=== PATIENT | female | born 1985 | race Caucasian/White ===

== ENCOUNTER 2024-08-01 17:37 | Inpatient (IN) ==
[2024-08-01] MEDS ORDERED: LIDOCAINE 1% LOCAL 20 ML VIAL INFIL PRN (18:16)
[2024-08-01] MEDS: LACTATED RINGER'S 1,000 ML IV PRN (18:26)
--- NOTE | 2024-08-01 18:29 | History & Physical Report ---
Date of Service August 01, 2024 Assessment & Plan (1) premature rupture of membranes: (2) Chronic hypertension affecting : (3) resulting from in-vitro fertilization: Plan 38 yo at 36 1/7 wga dx w/ pprom Mild range bp c/w chtn on meds, will monitor Fetus cat 2 - initially had 2 variables but resolved w/ repositioning and IVF and now cat 1, will continue to monitor Labor - small progress from this AM, will expectant manage for now GBS unk - pcn ordered as PPROM - discussed betamethasone course given status and no prior course, discussed risk of hypoglycemia. Pt agreeable and peds aware desires epidural History of Present Illness Chief Complaint: LOF, ctx Primary Care Provider: Juice Lux MD 38 yo at 36 1/7 wga presents w/ LOF and worsening ctx. Was seen this AM and unchanged 1cm over 4hrs so dc. 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 hx: G1 2015 TAB G2 current regular cycles denies hx stis Allergies Allergy/AdvReac Type Severity Reaction Status Date / Time chlorhexidine Allergy Rash Verified 08/01/24 03:46 Home Medications Medication Instructions Recorded Confirmed Type nifedipine 30 mg tablet,extended 30 mg PO BID 02/04/24 08/01/24 History release prenat.vits,tania,imi-ccll-phpkr 1 tab PO DAILY 02/04/24 08/01/24 History aspirin 81 mg tablet,delayed 81 mg PO DAILY 07/19/24 08/01/24 History release famotidine 20 mg tablet (Pepcid) 20 mg PO DAILY 07/30/24 08/01/24 History Patient History Surgical History S/P dilation and curettage Family History Grandmother Breast cancer Father Kidney disease Hypertension Social History (Updated 08/01/24 @ 03:40 by Concetta Castillo RN) Smoking Status: Never smoker Do You Dip or Chew Tobacco: No; Hx Alcohol Use: No Hx Substance Use: No Preferred Language: Sinhala Communication Ability: Effective Visual Impairment: No Limitations Hearing Ability: Normal Beliefs That Will Affect Care: None marital status: marital status details: Fortunato (38) [phone] Current Living Situation: Spouse Current Living Situation Comment: lives with spouse, 2 step children, no pets. 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 @ [employer] Feels Safe at Home: Yes Diet: regular Physical Exam Genitourinary: OB Exam Abdomen: + vertex (confirmed by bsus) Manual OB Exam: + cervical dilation 2 cm, + cervical effacement 90%, + station -2 and + amniotic fluid (+pooling, nitrazine, ferning) OB Exam Monitor Tracing: + external FHT monitor used, + external uterine monitor used (4) and + category II (145/mod/+accel/2 variables initially but improved w/ repositioning/ivf) Results & Data Vital Signs (Past 12 Hours) Vital Signs Temp Pulse Resp BP 08/01/24 17:50 98.2 F 100 H 20 147/90 H Laboratory Results OB Labs: Blood Type A Positive 02/12/24 Antibody Screen NEGATIVE 02/12/24 Hgb 13.1 g/dl (12.0-16.0) 07/28/24 Hct 38.9 % (37.0-47.0) 07/28/24 MCV 99.5 fL (80.0-100.0) 07/28/24 Plt Count 340 K/uL (130-400) 07/28/24 Rubella IgG Antibody Immune (Immune) 02/12/24 Treponema pallidum Ab Negative (Negative) 06/04/24 Hep Bs Antigen Negative (Negative) 02/12/24 Hepatitis C Antibody Negative (Negative) 02/12/24 HIV 1&2 Ab/P24 Ag 4thGn Negative (Negative) 02/12/24 Glucose 1 Hr 50 gm 119 mg/dl (70-130) 06/04/24 Maternal Serum AFP 68.5 ng/mL 03/10/24 OB Optional Labs: Chlamydia trachomatis RNA Not Detected (NotDetected) 02/12/24 Neisseria gonorrhoeae RNA Not Detected (NotDetected) 02/12/24 Thyroid Stimulating Hormone (TSH) 1.950 uIU/mL (0.30-4.50) 06/22/23 Alpha Fetoprotein Triple Screen SEE NOTE 03/10/24 Labs Reviewed: msafp wnl, smp GBS unk Diagnostic Findings 07/28 EFW 29%, AC 66%, post plac Coding Level of Care Code None Diagnoses premature rupture of membranes O42.919 Chronic hypertension affecting O10.919 resulting from in-vitro fertilization O09.819
[2024-08-01] MEDS: BETAMETH SOD PHOS/ACETATE IA 6 MG/ML IM STA (18:39)
[2024-08-01 18:44] LABS: Hematocrit (blood only) 34.5 % (37.0-47.0); Hemoglobin 11.8 g/dl (12.0-16.0); Mean Corpuscular Hemoglobin 33.2 pg (25.0-34.0); Mean Corpuscular Hgb Conc 34.2 g/dL (32.0-36.0); Mean Corpuscular Volume 97.2 fL (80.0-100.0); Mean Platelet Volume 10.9 fL (9.4-12.4); Platelet Count 307 K/uL (130-400); RDW Coefficient of Variation 12.7 % (11.5-14.5); RDW Standard Deviation 45.3 fL (36.4-46.3); Red Blood Count 3.55 M/uL (4.20-5.40); White Blood Count 15.01 K/ul (4.8-10.8)
[2024-08-01] MEDS: PENICILLIN GK 6 MU in DEXTROSE 5% 250 ML IV STA (19:18)
[2024-08-01] MEDS ORDERED: ROPIVACAINE 0.5% PF 5 MG/ML 20 ML VIAL EPI PRN (20:06)
[2024-08-01] MEDS ORDERED: fentaNYL citrate PF 100 MCG/2 ML VIAL EPI PRN (20:06)
[2024-08-01] MEDS ORDERED: SODIUM CHLORIDE 0.9% PF INJ 10 ML VIAL EPI PRN (20:06)
[2024-08-01] MEDS ORDERED: ONDANSETRON INJ 2 MG/ML 2 ML VIAL IV PRN (20:08)
[2024-08-01] MEDS ORDERED: ePHEDrine sulfate 50 MG/ML AMP IV PRN (20:08)
[2024-08-01] MEDS ORDERED: diphenhydrAMINE 50 MG/ML VIAL IV PRN (20:08)
[2024-08-01] MEDS ORDERED: NALOXONE HCL 0.4 MG/1 ML VIAL/CARP IV PRN (20:08)
[2024-08-01] MEDS ORDERED: NALOXONE HCL 1 MG in SODIUM CHLORIDE 0.9% 1,000 ML IV PRN (20:08)
[2024-08-01] MEDS ORDERED: LIDOCAINE 2% MPF LOCAL 5 ML VIAL EPI PRN (20:09)
[2024-08-01] MEDS ORDERED: NALBUPHINE HCL INJ 10 MG/ML AMP IV PRN (20:10)
[2024-08-01] MEDS: BUPIVACAINE 0.25% PF 30 ML VIAL ONE (20:10)
[2024-08-01] MEDS: LIDOCAINE 2%/EPINEPHRINE 1:200,000 20 ML PF ONE (20:10)
[2024-08-01] MEDS: fentaNYL citrate PF 100 MCG/2 ML VIAL ONE (20:10)
[2024-08-01] MEDS: fentANYL 2 MCG/ML BUPIVacaine 0.125%-NSS 100ML BAG ONE (20:11)
[2024-08-01] MEDS: LIDOCAINE 2%/EPINEPHRINE 1:200,000 20 ML PF EPI STA (20:18)
[2024-08-01] MEDS: SODIUM CHLORIDE 0.9% PF INJ 10 ML VIAL ONE (20:18)
[2024-08-01] MEDS: fentaNYL citrate PF 100 MCG/2 ML VIAL EPI STA (20:18)
[2024-08-01] MEDS: SODIUM CHLORIDE 0.9% PF INJ 10 ML VIAL EPI STA (20:19)
[2024-08-01] MEDS: BUPIVACAINE 0.25% PF 30 ML VIAL EPI STA (20:19)
[2024-08-01] MEDS: ePHEDrine sulfate 50 MG/ML AMP ONE (20:25)
--- NOTE | 2024-08-01 20:51 | Labor Progress Brief Note ---
Date of Service August 01, 2024 Subjective comfortable w/ epidural Assessment & Plan (1) premature rupture of membranes: (2) Chronic hypertension affecting : (3) resulting from in-vitro fertilization: Plan 38 yo at 36 1/7 wga dx w/ pprom Mild range bp c/w chtn on meds, will monitor Fetus cat 2 - reassuring with good variability and accels but intermit variable. IUPC placed, would consider amnioinfusion if continue despite repositioning, seem to occur more on L side Labor - progress noted however ctx spaced out. Discussed pit and pt agreeable. Can try amnioinfusion of variables persist/worsen. Discussed possibility of intolerance to labor but fetus is reassuring otherwise thus far so will try these maneuvers first, pt verbalized understsanding GBS unk - pcn ordered as PPROM - s/p betamethasone x [address] Admission and Anticipated Discharge Date Admission Date: August 01, 2024 Physical Exam Genitourinary: Manual OB Exam: + cervical dilation 3 cm, + cervical effacement 90% and + station -2 OB Exam Monitor Tracing: + external FHT monitor used, + intra-uterine pressure catheter used (placed, q7) and + category II (145/mod/+accel/intermit variable) Results & Data Vital Signs (Past 12 Hours) Vital Signs Temp Pulse Resp BP Pulse Ox 08/01/24 20:47 100 08/01/24 20:47 116 H 08/01/24 20:44 118 H 08/01/24 20:44 119/62 08/01/24 20:42 99 08/01/24 20:42 101 H 08/01/24 20:39 116 H 08/01/24 20:39 118/64 08/01/24 20:37 99 08/01/24 20:37 106 H 08/01/24 20:34 105 H 08/01/24 20:34 119/62 08/01/24 20:32 100 08/01/24 20:32 117 H 08/01/24 20:30 125 H 08/01/24 20:30 114/55 L 08/01/24 20:27 98 08/01/24 20:27 116 H 08/01/24 20:24 125 H 08/01/24 20:24 92/53 L 08/01/24 20:22 99 08/01/24 20:22 128 H 08/01/24 20:18 127 H 08/01/24 20:18 104/67 08/01/24 20:17 129 H 08/01/24 20:17 105/64 08/01/24 20:17 100 08/01/24 20:17 127 H 08/01/24 20:17 101/58 L 08/01/24 20:16 134 H 08/01/24 20:16 97/54 L 08/01/24 20:16 133 H 08/01/24 20:16 111/57 L 08/01/24 20:14 120 H 08/01/24 20:14 127/71 08/01/24 20:14 121 H 08/01/24 20:14 132/70 08/01/24 20:12 136 H 08/01/24 20:12 116/62 08/01/24 20:12 100 08/01/24 20:12 132 H 08/01/24 20:11 133 H 08/01/24 20:11 120/66 08/01/24 20:10 134 H 08/01/24 20:10 128/73 08/01/24 20:10 120 H 08/01/24 20:10 135/77 08/01/24 20:09 114 H 08/01/24 20:09 148/87 H 08/01/24 20:08 129 H 08/01/24 20:08 145/88 H 08/01/24 20:07 100 08/01/24 20:07 120 H 08/01/24 20:06 113 H 08/01/24 20:06 147/92 H 08/01/24 20:05 110 H 08/01/24 20:05 141/90 H 08/01/24 20:02 100 08/01/24 20:02 121 H 08/01/24 19:57 100 08/01/24 19:57 112 H 08/01/24 19:05 98.2 F 18 08/01/24 19:05 18 08/01/24 19:05 98.2 F 18 08/01/24 19:04 94 H 08/01/24 19:04 134/68 08/01/24 17:50 98.2 F 100 H 20 147/90 H Coding Level of Care Code None Diagnoses premature rupture of membranes O42.919 Chronic hypertension affecting O10.919 resulting from in-vitro fertilization O09.819
[2024-08-01] MEDS: PENICILLIN GK 3 MU in DEXTROSE 5% 100 ML IV PRN (22:45)
[2024-08-01] MEDS: OXYTOCIN 30 UNITS/NSS 30 UNITS/500 ML BAG IV PRN (23:01)
[2024-08-02] MEDS: fentANYL 2 MCG/ML BUPIVacaine 0.125%-NSS 100ML BAG EPI PRN (04:25)
[2024-08-02] MEDS: BUPIVACAINE 0.25% PF 30 ML VIAL EPI PRN (04:27)
[2024-08-02] MEDS: OXYTOCIN 30 UNITS/NSS 30 UNITS/500 ML BAG IV PRN (06:54)
--- NOTE | 2024-08-02 07:01 | Delivery Summary ---
Vaginal Delivery Summary Date of Service August 02, 2024 Vaginal Delivery Summary [facility] PREOPERATIVE DIAGNOSIS: 1. Single intrauterine at 36 2/7 wga 2. PPROM 3. Chronic hypertension 4. IVF 5. AMA POSTOPERATIVE DIAGNOSIS: 1. Single intrauterine at 36 2/7 wga 2. PPROM 3. Chronic hypertension 4. IVF 5. AMA 6. Delivered PROCEDURE: 1. Normal spontaneous vaginal delivery. SURGEON: Una Weston MD ANESTHESIA: Epidural. QUANTITATIVE BLOOD LOSS: 171 mL FLUIDS: Continuous LR. URINE OUTPUT: None. COMPLICATIONS: None. CONDITION: Stable. INDICATIONS: 38 yo at 36 2/7 wga presented with PPROM last evening. She received a dose of betamethasone and started on penicillin for GBS unknown status. She received an epidural for pain control. She was started on pitocin due to contractions spacing out and progressed to complete and desired to push FINDINGS: A viable male , weight pending with Apgars of 8 and 9 at 1 and 5 minutes respectively. SPECIMEN: Cord blood OPERATIVE REPORT: The patient progressed to 10 cm, 100% effaced and +2 station, pushed over intact perineum with anesthesia to deliver a viable male , weight and Apgars as above. Head of delivered in TOMA position. No nuchal cord was present. Body and shoulders were delivered without difficulty through body cord. was delivered to maternal abdomen and nursing staff. Delayed cord clamping was performed for 60 seconds. Cord was clamped and cut. Cord blood was obtained. Placenta delivered spontaneously intact with 3-vessel cord. IV oxytocin and fundal massage were given for excellent hemostasis. Vagina, cervix, perineum, and placenta were inspected. A right vaginal laceration extending to the external right labia was repaired using 3-0 and 4-0 vicryl, there was good hemostasis. Sponge and needle counts correct x2. No sponges were left behind. Mother and stable in immediate period. [facility] Vaginal Delivery Charge Vaginal Delivery Codes: 63341 global code for the antepartum, delivery, and post- Delivery Type Details: [facility]
[2024-08-02] MEDS ORDERED: HYDROCORTISONE ACETATE 25 MG SUPP PR PRN (07:04)
[2024-08-02] MEDS ORDERED: bisacodyL 10 MG SUPP PR PRN (07:04)
[2024-08-02] MEDS ORDERED: OXYTOCIN 30 UNITS/NSS 30 UNITS/500 ML BAG IV PRN (07:04)
--- NOTE | 2024-08-02 07:48 | Communication Note ---
Date of Service: August 02, 2024 Called by nursing due to suspected hematoma. Prior Rn had noted bruising and small hematoma at first check after delivery. With next check, the next shift rn had noted that she thought hematoma had increased in size slightly. Pt comfortable, denies pain. There is bruising on R lower labia/vulva just inferior to where tear was, about 2-3cm size hematoma. Does not seem like it tracks backwards into the vagina, seems contained in that inferior R labia. Nursing thought it had slightly decreased after my exam/manipulating it. VSS, pt denies feeling lightheaded/dizzy. Does not seem rapidly expanding while I was observing it while Rn performed straight cath before my exam, will recheck in 1hr.
--- NOTE | 2024-08-02 08:32 | Anesthesia Procedure Note ---
Date of Service August 02, 2024 Anesthesia Post Epidural Note Vital Signs Vital Signs: Temp Pulse Resp BP Pulse Ox 36.7 C 92 H 16 124/70 99 08/02/24 07:44 08/02/24 08:29 08/02/24 07:44 08/02/24 08:29 08/02/24 06:52 Pain Intensity Lower Medial Rectal: Pain Intensity: 0 Notes Mental Status: alert / awake / arousable Nausea / Vomiting: adequately controlled Pain: adequately controlled Airway Patency, RR, SpO2: stable & adequate BP & HR: stable & adequate Hydration State: stable & adequate Neuraxial Anesthesia: was administered and sensory block is resolving Anesthetic Complications: no major complications apparent Epidural: Removed without complications and With tip intact
--- NOTE | 2024-08-02 08:59 | Communication Note ---
Date of Service: August 02, 2024 Re-evaluated just before moving over, pt still feeling well w/o significant pain. R labia is a little more generally swollen but the actual hematoma is ab out the same size at 2-3cm, still does not appear to be tracking back into vagina or growing within the labia. VSS remain stable, will continue to manage expectantly w/ ice and pain medication
[2024-08-02] MEDS: DIPHTHER/TETAN/PERTUS Vaccine (Tdap, Adol/Adult) 0.5mL IM ONE (09:36)
[2024-08-02] MEDS: BENZOCAINE 20% SPRY 85 APPLN/85 GM CAN EXT PRN (09:46)
[2024-08-02] MEDS: PRENATAL VITAMIN 1 TAB PO SCH (09:46)
[2024-08-02] MEDS: DOCUSATE SODIUM 100 MG CAP PO SCH (09:46)
[2024-08-02] MEDS: NIFEdipine EXTENDED REL 30 MG TABCR PO SCH (09:50)
[2024-08-02] MEDS: IBUPROFEN 600 MG TAB PO PRN (10:31)
[2024-08-02] MEDS ORDERED: BETAMETH SOD PHOS/ACETATE IA 6 MG/ML IM SCH (18:30)
[2024-08-02] MEDS: ACETAMINOPHEN 325 MG TAB PO PRN (19:08)
[2024-08-02] MEDS: CALCIUM CARBONATE 500 MG CHEWABLE TAB PO PRN (19:08)
--- NOTE | 2024-08-03 06:42 | Obstetrical Progress Note ---
Date of Service August 03, 2024 Assessment & Plan (1) Normal spontaneous vaginal delivery: (2) Hematoma of labia majora: Plan - Patient reports of worsening pain in hematoma site. Otherwise doing well. -Will discharge in the evening if they feel ready Admission and Anticipated Discharge Date Admission Date: August 01, 2024 Supervising Physician Co-Signing Physician Notes Resident Physician Supervision Note: I interviewed and examined the patient. Discussed with Dr. Chen and agree with findings and plan as documented in the note. Any exceptions or clarifications are listed here: PP1 s/p c/b vulvar hematoma. More sore today after epidural wore off but managed by motrin tylenol. VSS, on exam right labia is still swollen but hematoma area inferiorly feels softer. Area of bruising goes superiorly slightly but remains soft. Hematoma seems like improving in firmness, just appears more bruised. Will order small dose of oxycodone for add'l pain control as she says she doesn't remember if didn't tolerate higher doses before, donut pillow Documented By: Una Weston MD Subjective 1st PPD following at 36+2 week POG. She is having a pain in hematoma site which she rates 7 out of 10. Baby doing well. Pain: Mild, intermittent Lochia: Moderate Diet: Regular Ob diet Bowel Movement: Not had yet Gas: Not aware of passing, but no abdominal distension Peeing: Normal, no bladder distension Ambulation: Normally Review of Systems Review of Systems: As per HPI Physical Exam Physical Exam: General: Alert and oriented. No acute distress. CVS: S1 S2+ No murmurs, regular rhythm. Respiratory: CTA bilaterally. No rhonchi, wheezes, or crackles. No increased work of breathing. Abdomen: Bowel sound +. Soft, nontender Uterus: Fundus firm and palpable few cm below the umbilicus. Vagina: Hematoma in right labia majora, soft, tender Lower extremities: No LE edema. No deep calf pain. Results & Data Vital Signs (Past 12 Hours) Vital Signs Temp Pulse Resp BP Pulse Ox O2 Del Method 08/03/24 03:15 36.6 C 86 18 124/85 97 Room Air 08/03/24 00:00 36.8 C 89 18 115/87 97 Room Air 08/02/24 19:10 36.9 C 94 H 18 124/80 Room Air
[2024-08-03] MEDS: oxyCODONE HCL IR 5 MG TAB (IMMEDIATE RELEASE) PO PRN (08:39)
[2024-08-03] MEDS: bisacodyL 5 MG TABEC PO SCH (20:05)
--- NOTE | 2024-08-04 07:41 | Obstetrical Progress Note ---
Date of Service August 04, 2024 Assessment & Plan (1) Normal spontaneous vaginal delivery: (2) Hematoma of labia majora: Plan -Patient reports her pain in hematoma site is getting better. -Feels ready to go home today. Will discharge today. -Follow up with Dr Weston in a week Admission and Anticipated Discharge Date Admission Date: August 01, 2024 Supervising Physician Co-Signing Physician Notes Resident Physician Supervision Note: I interviewed and examined the patient. Discussed with Dr. Chen and agree with findings and plan as documented in the note. Any exceptions or clarifications are listed here: Doing well today. Notes her vulva feeling better. There is brusing of the left labia from the perineum to upper labia. This is soft and I do not feel a mass in this area today. Tolerates exam. Is ready for d/c. Will send home with 3 oxycontin in case she needs but feels she will probably do ok with tylenol/ibuprofen at this point. INstructions reviewed. rtc in one week for evaluation. Documented By: Harika Patel MD, FACOG Subjective 2nd PPD following with vulvar hematoma at 36+2 week POG. She is having a pain in hematoma site which she rates 7 out of 10. Baby doing well. Pain: Mild, intermittent Lochia: Minimal Diet: Regular Ob diet Bowel Movement: Not had yet Gas: Aware of passing, no abdominal distension Peeing: Normal, no bladder distension Ambulation: Normally Review of Systems Review of Systems: As per HPI Physical Exam Physical Exam: General: Alert and oriented. No acute distress. CVS: S1 S2+ No murmurs, regular rhythm. Respiratory: CTA bilaterally. No rhonchi, wheezes, or crackles. No increased work of breathing. Abdomen: Bowel sound +. Soft, nontender Uterus: Fundus firm and palpable few cm below the umbilicus. Vagina: Hematoma in right labia majora, soft, tender Lower extremities: No LE edema. No deep calf pain. Results & Data Vital Signs (Past 12 Hours) Vital Signs Temp Pulse Resp BP Pulse Ox O2 Del Method 08/04/24 04:10 36.7 C 86 18 129/83 100 Room Air 08/03/24 23:00 36.7 C 87 18 125/84 97 Room Air 08/03/24 20:50 37.0 C 85 18 138/87 97 Room Air
[2024-08-04 07:42] VITALS: RESP 16
[2024-08-04 12:08] VITALS: BP 127/79; PULSE 89; TEMP 98.6; O2SAT 99
== END 2024-08-04 13:20 | disposition home or self-care (01) | DRG 806 ==
LOC: OPB 17:37 → 4S1 17:39 → 4E2 08-02 09:38